=== PATIENT | female | born 1990 | race Caucasian/White ===

== ENCOUNTER 2020-04-15 19:12 | Emergency (ER) | payer SELFPAY ==
[~2020-04-15] VITALS: Ht 160 cm; Wt 49.9 kg
[2020-04-15 19:26] VITALS: BP 112/77
--- NOTE | 2020-04-15 19:36 | NUR ---
PT TAKEN TO BED 1
--- NOTE | 2020-04-15 19:45 | NUR ---
29 YO F BIB SELF FOR C/C OF LEFT SHOULDER ABCESS X3 DAYS. ABCESS IS ABOUT 2.5 INCHES IN LENGTH AND 1 INCH IN WIDTH. THERE IS A SMALL HOLE AT THE TOP OF THE ABCESS WHERE WHITE PUSS IS COMING OUT. PT STATES SHE IS A METH USER AND DRINKS ALCOHOL. PER PT SHE HAS BEEN TAKING AN UNKOWN ANTIBIOTIC THAT SHE BOUGHT FROM A FRIEND WITHOUT RELIEF OF SYMPTOMS. PT DENIES FEVER, COUGH, SOB, AND TRAVEL. BED LOCKED AND IN LOWEST POSITION, SIDE RAILS X1. NKA MED HX: NONE RX: UNKOWN ANTIBIOTIC, METH, ALCOHOL
[2020-04-15] MEDS ORDERED: LIDOCAINE MPF 1% 10 MG/ML VIAL INJ ONE (20:15)
--- NOTE | 2020-04-15 20:18 | NUR ---
ASSISTED ERMD IN DRAINING ABCESS. PT TOLERATED WELL.
[2020-04-15] MEDS ORDERED: cefTRIAXone 1,000 MG VIAL ONE (20:24)
[2020-04-15] MEDS ORDERED: LIDOCAINE MPF 1% 5 ML ONE (20:25)
[2020-04-15] MEDS ORDERED: cefTRIAXone 1,000 MG in LIDOCAINE MPF 1% 2.1 ML IM ONE (20:25)
[2020-04-15] MEDS ORDERED: KETOROLAC 30 MG/ML VIAL IM ONE (20:25)
[2020-04-15 20:43] VITALS: BP 112/77
--- NOTE | 2020-04-15 20:43 | NUR ---
Patient discharged with v/s stable. Written and verbal after care instructions given and explained. Patient alert, oriented and verbalized understanding of instructions. Ambulatory with steady gait. All questions addressed prior to discharge. ID band removed. Patient advised to follow up with PMD. Rx of KEFLEX, IBUPROFEN given. Patient educated on indication of medication including possible reaction and side effects. Opportunity to ask questions provided and answered.
== END 2020-04-15 20:43 | disposition home or self-care (01) ==
LOC: MED 19:12
DX: L02.414 Cutaneous abscess of left upper limb (principal); F15.10 Other stimulant abuse, uncomplicated
CPT/HCPCS: 10060; 96372; 99284; J0696; J1885; J2001; 99283